=== PATIENT | female | born 1995 | race Caucasian/White ===

== ENCOUNTER 2023-09-19 17:42 | Emergency (ER) | payer OTHER, SELFPAY ==
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
--- NOTE | ~2023-09-19 | XR_ITS ---
EXAMINATION: XR RIBS, LEFT CLINICAL INFORMATION: Injury. Rule out fracture. COMPARISON: None available. TECHNIQUE: 3 views of the left ribs were obtained. One view of the chest. FINDINGS: Lungs are clear. No consolidation, pneumothorax, or pleural effusion. The cardiomediastinal silhouette and pulmonary vasculature are normal. Osseous structures are unremarkable. Ribs are intact. No fractures are identified. XR/XR ribs LT min 3V w [id number] IMPRESSION: Unremarkable examination.
[2023-09-19 17:57] VITALS: BP 152/89; PULSE 78; RESP 16; TEMP 36.5; O2SAT 96; BMI 30.8
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
[2023-09-19 21:22] VITALS: BP 102/60; PULSE 60; RESP 20; TEMP 36.7; O2SAT 99
--- NOTE | 2023-09-19 21:30 | PC.NURSE ---
[facility] Advocate called for pt
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
[2023-09-20 01:03] LABS: Appearance Urine Cloudy; Color Urine Dark Yellow; Glucose Urine UA Negative (Negative); Leukocyte Esterase Urine Small (1+) (Negative); Nitrite Urine Negative (Negative); PH 5.5 (5.0-9.0); Specific Gravity - Urine >= 1.030 (1.005-1.025); UMIC TRIGGER UACC YES; Urine Blood Large (3+) (Negative); Urine Ketones Trace mg/dL (Negative); Urine Protein 30 (1+) mg/dL (Neg-Trace)
[2023-09-20 01:07] LABS: UPreg QC Valid YES; Urine Pregnancy NEGATIVE (NEGATIVE)
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
[2023-09-20 01:17] LABS: Bacteria Urine 3+ (None Seen); UACC Culture Trigger YES
[2023-09-20] MEDS: Acetaminophen 325 MG TABLET 975 MG PO (02:22)
== END 2023-09-20 02:40 | disposition home or self-care (01) ==
PROVIDERS: Physician Assistant Medical; Emergency Provider Emergency Medicine; PCP Student in an Organized Health Care Education/Training Program
DX: S09.90XA Unspecified injury of head, initial encounter (principal); Y04.2XXA Assault by strike against or bumped into by another person, initial encounter; Z72.89 Other problems related to lifestyle; Z63.0 Problems in relationship with spouse or partner; Y93.9 Activity, unspecified; Y92.9 Unspecified place or not applicable; Y99.9 Unspecified external cause status
CPT/HCPCS: 70450; 70486; 71101; 72125; 81001; 81003; 81025; 87086; 99284

== ENCOUNTER → 2024-04-17 09:35 | Outpatient (BNVA) | payer SELFPAY | PROVIDERS: PCP Student in an Organized Health Care Education/Training Program; Visit Provider Physician Assistant Medical | DX: Z02.79 Encounter for issue of other medical certificate (principal) ==